=== PATIENT | male | born 1985 | race American Indian/Alaskan Native ===

== ENCOUNTER 2018-06-18 11:40 | Emergency (ER) | payer SELFPAY ==
--- NOTE | 2018-06-18 12:41 | Emergency Department Report ---
ED Male HPI - General Chief complaint: Urogenital-Male Stated complaint: STD CHECK Time Seen by Provider: 06/18/18 12:28 Source: patient Mode of arrival: Ambulatory Limitations: No Limitations - History of Present Illness Initial comments: Patient is 32 years old male with no significant past medical history. Patient presented to the emergency room with his girlfriend stating that his girlfriend tested positive for chlamydia and he wanted to get tested and treated for it. Patient currently denying any symptoms specifically patient denied any penile discharge or painful urination or dysuria. He also denied any fever, nausea or vomiting. MD Complaint: other (exposure to STD) - Related Data Allergies Allergy/AdvReac Type Severity Reaction Status Date / Time coconut Allergy Hives Verified 06/18/18 11:47 shellfish derived Allergy Itching Verified 06/18/18 11:47 ED Review of Systems ROS: Stated complaint: STD CHECK Other details as noted in HPI Comment: All other systems reviewed and negative Constitutional: denies: chills, fever Respiratory: denies: cough, orthopnea, shortness of breath, SOB with exertion, wheezing Cardiovascular: denies: chest pain, palpitations Gastrointestinal: denies: abdominal pain, nausea, vomiting, diarrhea, constipation, hematemesis, hematochezia Genitourinary: denies: urgency, dysuria, frequency, hematuria, discharge, testicular pain, testicular mass Neurological: denies: headache, weakness, numbness, paresthesias, confusion, abnormal gait ED Past Medical Hx - Past Medical History Previous Medical History?: Yes Hx Asthma: Yes Additional medical history: hernia - Surgical History Past Surgical History?: No - Social History Smoking Status: Never Smoker Substance Use Type: None ED Physical Exam - General Limitations: No Limitations General appearance: alert, in no apparent distress - Head Head exam: Present: atraumatic, normocephalic, normal inspection - ENT ENT exam: Present: normal exam, normal orophraynx, mucous membranes moist - Neck Neck exam: Present: normal inspection, full ROM. Absent: tenderness, meningismus, lymphadenopathy, thyromegaly - Respiratory Respiratory exam: Present: normal lung sounds bilaterally - Cardiovascular Cardiovascular Exam: Present: regular rate, normal rhythm, normal heart sounds - GI/Abdominal GI/Abdominal exam: Present: soft, normal bowel sounds. Absent: distended, tenderness, guarding, rebound, rigid, organomegaly, mass, bruit, pulsatile mass, hernia - Extremities Exam Extremities exam: Present: normal inspection, full ROM, normal capillary refill. Absent: pedal edema, calf tenderness - Back Exam Back exam: Present: normal inspection, full ROM. Absent: tenderness, CVA tenderness (R), CVA tenderness (L), muscle spasm, paraspinal tenderness, vertebral tenderness - Neurological Exam Neurological exam: Present: alert, oriented X3, CN II-XII intact, normal gait, reflexes normal - Skin Skin exam: Present: warm, intact, normal color ED Course Vital Signs 06/18/18 11:47 Temperature 97.5 F L Pulse Rate 82 Respiratory 18 Rate Blood Pressure 145/66 O2 Sat by Pulse 97 Oximetry Critical care attestation.: If time is entered above; I have spent that time in minutes in the direct care of this critically ill patient, excluding procedure time. ED Disposition Clinical Impression: Exposure to STD Disposition: DC-01 TO HOME OR SELFCARE Is pt being admited?: No Does the pt Need Aspirin: No Condition: Stable Instructions: Safe Sex (ED) Referrals: PRIMARY CARE, [Primary Care Provider] - 3-5 Days
== END 2018-06-18 12:57 | disposition home or self-care (01) ==
LOC: ED 11:40
CPT/HCPCS: 99282

== ENCOUNTER 2021-03-07 16:43 | Emergency (ER) | payer OTHER ==
[2021-03-07] MEDS ORDERED: HYDROcodone/ACETAMINOPHEN 5-325 MG TAB PO ONE (17:22)
[2021-03-07 17:46] LABS: Basophils % (Auto) 0.2 % (0.0-1.8); Eosinophils % (Auto) 0.1 % (0.0-4.3); Hematocrit 43.9 % (35.5-45.6); Hemoglobin 15.2 gm/dl (11.8-15.2); Lymphocytes # (Auto) 0.9 K/mm3 (1.2-5.4); Mean Corpuscular HGB Conc 35 % (32-34); Mean Corpuscular Volume 90 fl (84-94); Monocytes # (Auto) 0.4 K/mm3 (0.0-0.8); Monocytes % (Auto) 3.3 % (0.0-7.3); Platelet Count 291 K/mm3 (140-440); Red Blood Count 4.85 M/mm3 (3.65-5.03); Red Cell Distribution Width 13.6 % (13.2-15.2)
[2021-03-07 18:03] LABS: Alanine Aminotransferase 20 units/L (7-56); Albumin 4.7 g/dL (3.9-5); BUN/Creatinine Ratio 9; Blood Urea Nitrogen 10 mg/dL (9-20); Calcium 9.2 mg/dL (8.4-10.2); Hemolysis Index 5
[2021-03-07 18:06] VITALS: BP 126/86
[2021-03-07 18:09] LABS: INR 1.02 (0.87-1.13)
[2021-03-07 18:10] LABS: Partial Thromboplastin Time 32.6 Sec. (24.2-36.6)
--- NOTE | 2021-03-07 19:04 | Emergency Department Report ---
<JOE GALLOWAY - Last Filed: 03/07/21 17:01> - General Stated complaint: SNAKE BITE Time Seen by Provider: 03/07/21 16:58 - History of Present Illness Initial comments: The patient was evaluated in the emergency department for symptoms described in the history of present illness. He/she was evaluated in the context of the global COVID-19 pandemic, which necessitated consideration that the patient might be at risk for infection with the virus that causes COVID-19. Institutional protocols and algorithms that pertain to the evaluation of patients at risk for COVID-19 are in a state of rapid change based on information released by regulatory bodies including the CDC and federal and state organizations. These policies and algorithms were followed during the patient's care in the emergency department. Please note that these policies, procedures and recommendations changed on a rapid basis. 35-year-old -[place] male presents to the emergency room for snakebite hour prior to arrival. Patient appears to be bitten by a copperhead snake. Snake has a triangle head with slight eyes. Patient states that he was at work when a elderly lady yelled that there was a snake he went over with his pitchfork to stab his snake and then grabbed it thinking that it was when it jumped back and bit him on his right index finger. Patient states he soon came into the emergency room to be evaluated. Patient denies any chest pain no shortness of breathing no feeling of throat is closing. Denies any nausea no vomiting no fevers or chills. Patient reports no past medical history currently takes no medications on a daily basis and has no known drug allergies. MD complaint: other Onset/Timin -: hour(s) Tetanus Up to Date: yes - Related Data Previous Rx's Medication Instructions Recorded Last Taken Type HYDROcodone/APAP 5-325 [[place] 1 - 2 each PO Q6HR PRN #14 tablet 03/07/21 Unknown Rx 5/325] Allergies Allergy/AdvReac Type Severity Reaction Status Date / Time coconut Allergy Hives Verified 06/18/18 11:47 shellfish derived Allergy Itching Verified 06/18/18 11:47 Abscess Boil HPI - HPI Stated Complaint: SNAKE BITE Time Seen by Provider: 03/07/21 16:58 Home Medications: Previous Rx's Medication Instructions Recorded Last Taken Type HYDROcodone/APAP 5-325 [[place] 1 - 2 each PO Q6HR PRN #14 tablet 03/07/21 Unknown Rx 5/325] Allergies/Adverse Reactions: Allergies Allergy/AdvReac Type Severity Reaction Status Date / Time coconut Allergy Hives Verified 06/18/18 11:47 shellfish derived Allergy Itching Verified 06/18/18 11:47 ED Past Medical Hx - Past Medical History Hx Asthma: Yes Additional medical history: hernia - Social History Smoking Status: Never Smoker Substance Use Type: None - Medications Home Medications: Home Medications Medication Instructions Recorded Confirmed Last Taken Type HYDROcodone/APAP 5-325 [[place] 1 - 2 each PO Q6HR PRN #14 tablet 03/07/21 Unknown Rx 5/325] ED Physical Exam - General General appearance: alert, in no apparent distress - Head Head exam: Present: atraumatic, normocephalic - Eye Eye exam: Present: normal appearance - ENT ENT exam: Present: mucous membranes moist - Neck Neck exam: Present: normal inspection, full ROM - Respiratory Respiratory exam: Present: normal lung sounds bilaterally, chest wall tenderness. Absent: respiratory distress, accessory muscle use - Cardiovascular Cardiovascular Exam: Present: regular rate - GI/Abdominal GI/Abdominal exam: Present: soft, normal bowel sounds - Expanded Upper Extremity Exam Right General: Present: other Shoulder Exam: Present: normal inspection Upper Arm exam: Present: normal inspection, full ROM Elbow exam: Present: normal inspection, full ROM Forearm Wrist exam: Present: tenderness. Absent: swelling Hand Wrist exam: Present: tenderness, swelling, erythema. Absent: full ROM Neurosensory exam: Present: 2-point discrimination Vascular: Present: normal capillary refill - Back Exam Back exam: Present: normal inspection, full ROM - Neurological Exam Neurological exam: Present: alert, oriented X3, normal gait - Psychiatric Psychiatric exam: Present: normal affect, normal mood - Skin Skin exam: Present: intact, erythema ED Course - Reevaluation(s) Reevaluation #1: 03/07/21 19:22 Patient's been reassessed by this provider swelling has improved pain is very minimal. ED Medical Decision Making - Medical Decision Making 35-year-old -[place]i male presents to the emergency room for snakebite hour prior to arrival. Patient appears to be bitten by a copperhead snake. Snake has a triangle head with slight eyes. Patient states that he was at work when a elderly lady yelled that there was a snake he went over with his pitchfork to stab his snake and then grabbed it thinking that it was when it jumped back and bit him on his right index finger. Patient states he soon came into the emergency room to be evaluated. Patient denies any chest pain no shortness of breathing no feeling of throat is closing. Denies any nausea no vomiting no fevers or chills. Patient reports no past medical history currently takes no medications on a daily basis and has no known drug allergies. Spoke with poison control at 17:00 to discuss snakebite. They informed me to order labs a CBC CMP PT PTT D-dimer and fibrinogen. It was told to me that at this moment there is no antivenom needed. They recommend pain control without using NSAIDs. They recommend 6 to 8-hour monitoring. Recommend tetanus. Recommend measuring site and elevate above heart. They recommend no ice. Recommend to call back if there is any rapid swelling above two joints that may need to then start antivenom at that time they instructed that we will need to call back to them. Spoke to asphalt heater operator Jie. Inform my attending Dr. Chandra Beltran ER attending. Patient was ordered [place] 5/325 for pain management. Measurements have been taken by assistant tennis coach [place]. The patient's care has been transferred to and accepted by[ Dr. Beltran }. We discussed: The patient's chief complaints; labs and imaging that have been completed and those that are still pending; any treatment provided and the patient's response to treatment; any significant change in condition; the treatment plan prior to the transfer of care. The accepting provider will follow up on all pending labs and imaging and make any necessary changes to the current impression and/or treatment plan. The accepting physician/midlevel is n ow responsible for the patient's care and final disposition. ED Disposition Clinical Impression: Snake bite Disposition: HOME / SELF CARE / HOMELESS Condition: Stable Instructions: Snake Bite Additional Instructions: Avoid aspirin, Motrin, Aleve for the next week. Return to the emergency department should you develop worsening symptoms, inability to tolerate food or liquids, high fever or any other concerns Prescriptions: HYDROcodone/APAP 5-325 [[place] 5/325] 1 - 2 each PO Q6HR PRN #14 tablet PRN Reason: Pain Referrals: PRIMARY CARE, [Primary Care Provider] - 3-5 Days <KRISTEN BELTRAN - Last Filed: 03/09/21 19:33> ED Review of Systems ROS: Stated complaint: SNAKE BITE Other details as noted in HPI ED Course Vital Signs 03/07/21 03/07/21 03/07/21 16:58 17:01 17:20 Pulse Rate 98 H 98 H 101 H Respiratory 13 12 16 Rate Blood Pressure 134/78 [Left] O2 Sat by Pulse 100 99 100 Oximetry 03/07/21 03/07/21 17:50 19:07 Pulse Rate 101 H Respiratory 16 Rate Blood Pressure 126/86 [Left] O2 Sat by Pulse 100 98 Oximetry - Reevaluation(s) Reevaluation #2: 03/07/21 19:47 Patient resting comfortably in chair. Patient states feels though the swelling has gone down considerably. Patient in no acute distress. We will continue to observe until approximately 00: 45, if patient's condition does not worsen he will be discharged with analgesia ED Medical Decision Making - Lab Data Result diagrams: 03/07/21 17:13 03/07/21 17:13 Laboratory Tests 03/07/21 03/07/21 03/07/21 17:13 17:13 17:13 WBC 11.1 H RBC 4.85 Hgb 15.2 Hct 43.9 MCV 90 MCH 31 MCHC 35 H RDW 13.6 Plt Count 291 Lymph % (Auto) 8.0 L [place] % (Auto) 3.3 Eos % (Auto) 0.1 Baso % (Auto) 0.2 Lymph # (Auto) 0.9 L [place] # (Auto) 0.4 Eos # (Auto) 0.0 Baso # (Auto) 0.0 Seg Neutrophils % 88.4 H Seg Neutrophils # 9.8 H PT 13.9 INR 1.02 APTT 32.6 Fibrinogen 308 D-Dimer 138.28 Sodium 140 Potassium 3.7 Chloride 103.9 Carbon Dioxide 22 Anion Gap 18 BUN 10 Creatinine 1.1 Estimated GFR > 60 BUN/Creatinine Ratio 9 Glucose 127 H Calcium 9.2 Total Bilirubin 0.30 AST 22 ALT 20 Alkaline Phosphatase 108 Total Protein 8.3 H Albumin 4.7 Albumin/Globulin Ratio 1.3 Critical care attestation.: If time is entered above; I have spent that time in minutes in the direct care of this critically ill patient, excluding procedure time. ED Disposition Is pt being admited?: No Does the pt Need Aspirin: No
[2021-03-07] MEDS ORDERED: TETANUS,DIPH,PERTUSS(ACELL) VACCINE 0.5 ML SYRINGE IM ONE (19:07)
== END 2021-03-07 23:48 | disposition home or self-care (01) ==
LOC: ED 16:43
DX: T63.001A Toxic effect of unspecified snake venom, accidental (unintentional), initial encounter (principal); J45.909 Unspecified asthma, uncomplicated; Z91.013 Allergy to seafood; Z91.018 Allergy to other foods; Z79.899 Other long term (current) drug therapy; Y92.89 Other specified places as the place of occurrence of the external cause
CPT/HCPCS: 36415; 80053; 85025; 85379; 85384; 85610; 85730; 90471; 90715; 99283